=== PATIENT | female | born 1960 | race Caucasian/White ===

== ENCOUNTER 2017-12-28 00:14 | Inpatient (IN) | payer OTHER ==
[2017-12-28] MEDS ORDERED: CONTRAST GIVEN MC (01:30)
[2017-12-28 01:31] LABS: BASO # 0.1 x10^3/uL (0.0-0.2); BASO % 0 % (0-3); EOS # 0.1 x10^3/uL (0.0-0.7); EOS % 1 % (0-3); HEMATOCRIT 47.2 % (36.0-47.0); HEMOGLOBIN 16.1 g/dL (12.0-15.5); LYMPH # 1.2 x10^3/uL (1.0-4.8); LYMPH % 7 % (24-48); MEAN CORPUSCULAR HEMOGLOBIN 29 pg (25-35); MEAN CORPUSCULAR HGB CONC 34 g/dL (31-37); MEAN CORPUSCULAR VOLUME 86 fL (79-100); MONO # 0.8 x10^3/uL (0.0-1.1); MONO % 4 % (0-9); NEUT # 16.3 x10^3uL (1.8-7.7); NEUT % 88 % (31-73); PLATELET COUNT 229 x10^3/uL (140-400); RED BLOOD COUNT 5.48 x10^6/uL (3.50-5.40); RED CELL DISTRIBUTION WIDTH 14.1 % (11.5-14.5); WHITE BLOOD COUNT 18.5 x10^3/uL (4.0-11.0)
[2017-12-28] MEDS: IV NORMAL SALINE 1000ML BAG 1,000 ML IV ×3 (01:36→13:22)
[2017-12-28] MEDS: fentaNYL PF VIAL 100 MCG/2 ML VIAL IV (01:36)
[2017-12-28] MEDS: ONDANSETRON PF 4 MG/2 ML VIAL. IV ×2 (01:36→05:55)
[2017-12-28] MEDS: LIDO:MAALOX:DONNATAL 1:1:1 15 ML SINGLE DOSE SWSW (01:42)
[2017-12-28 01:59] LABS: ANION GAP 14 (6-14); BLOOD UREA NITROGEN 25 mg/dL (7-20); BUN/CREATININE RATIO 25 (6-20); CALCIUM 10.1 mg/dL (8.5-10.1); CARBON DIOXIDE 27 mmol/L (21-32); CHLORIDE 99 mmol/L (98-107); GFR 56.9; GLUCOSE 168 mg/dL (70-99); POTASSIUM 3.4 mmol/L (3.5-5.1); SODIUM 140 mmol/L (136-145)
[2017-12-28 02:04] LABS: ALBUMIN 4.1 g/dL (3.4-5.0); ALBUMIN/GLOBULIN RATIO 1.1 (1.0-1.7); ALK PHOS 91 U/L (46-116); ALT (SGPT) 26 U/L (14-59); AST (SGOT) 15 U/L (15-37); LIPASE 143 U/L (73-393); MAGNESIUM 1.7 mg/dL (1.8-2.4); TOTAL BILIRUBIN 0.6 mg/dL (0.2-1.0)
[2017-12-28 02:05] LABS: ADD MAN DIFF? YES
[2017-12-28 02:10] LABS: TROPONINI < 0.017 ng/mL (0.000-0.055)
[2017-12-28 03:12] LABS: BILIRUBIN,URINE NEGATIVE (NEG); CLARITY,URINE CLEAR; COLOR,URINE YELLOW; GLUCOSE,URINE NEGATIVE (NEG); NITRITE,URINE NEGATIVE (NEG); PROTEIN,URINE NEGATIVE (NEG-TRACE); UROBILINOGEN,URINE 0.2 mg/dL (0.2 mg/dL)
[2017-12-28 03:19] LABS: BACTERIA,URINE FEW /HPF (0-FEW); RBC,URINE 0 /HPF (0-2); SQUAMOUS EPITHELIAL CELL,UR FEW /LPF; WBC,URINE OCC /HPF (0-4)
[2017-12-28] MEDS: IOHEXOL 300 MG/ML 100ML VIAL. IV (03:24)
[2017-12-28] MEDS: PROMETHAZINE 12.5 MG in IV NORMAL SALINE 50ML 50 ML IV (03:38)
[2017-12-28 04:16] LABS: % BANDS 12 % (0-9); % EOS 1 % (0-5); % LYMPHS 9 % (24-48); % MONOS 3 % (0-10); % SEGS 75 % (35-66); PLT ESTIMATE ADEQUATE (ADEQUATE)
[2017-12-28] MEDS ORDERED: fentaNYL PF VIAL 100 MCG/2 ML VIAL IV (05:00)
[2017-12-28] MEDS: POTASSIUM CHLORIDE 20 MEQ TABLET.ER. PO (05:30)
[2017-12-28] MEDS: PANTOPRAZOLE IV PUSH 40 MG VIAL. IVP (05:35)
[2017-12-28] MEDS: MAGNESIUM OXIDE 400 MG TABLET PO (05:55)
[2017-12-28] MEDS ORDERED: CIPROFLOXACIN HCL 250 MG TABLET. PO (11:00)
[2017-12-28] MEDS ORDERED: ONDANSETRON PF 4 MG/2 ML VIAL. IV (11:00)
[2017-12-28] MEDS: FAMOTIDINE 20 MG/2 ML VIAL IVP ×2 (13:21→20:31)
[2017-12-28] MEDS: CIPROFLOXACIN 400MG PREMIX 200 ML IV ×2 (13:21→20:31)
[2017-12-28] MEDS: metroNIDAZOLE 500 MG TABLET PO ×2 (14:32→21:28)
[2017-12-28] MEDS: LACTOBACILLUS RHAMNOSUS GG 1 CAPSULE. PO (20:31)
[2017-12-28] MEDS: CETIRIZINE HCL 10 MG TABLET. PO (21:28)
[2017-12-28] MEDS: ACETAMINOPHEN 325 MG TABLET. PO (21:29)
[2017-12-29] MEDS: IV NORMAL SALINE 1000ML BAG 1,000 ML IV (04:50)
[2017-12-29] MEDS: ACETAMINOPHEN 325 MG TABLET. PO (04:52)
[2017-12-29] MEDS: metroNIDAZOLE 500 MG TABLET PO (04:53)
[2017-12-29 05:53] LABS: ADD MAN DIFF? NO
[2017-12-29 06:14] LABS: BASO % 0 % (0-3); EOS % 1 % (0-3); HEMATOCRIT 39.2 % (36.0-47.0); HEMOGLOBIN 13.1 g/dL (12.0-15.5); LYMPH # 1.3 x10^3/uL (1.0-4.8); LYMPH % 30 % (24-48); MEAN CORPUSCULAR HEMOGLOBIN 29 pg (25-35); MEAN CORPUSCULAR HGB CONC 34 g/dL (31-37); MEAN CORPUSCULAR VOLUME 88 fL (79-100); MONO # 0.5 x10^3/uL (0.0-1.1); MONO % 11 % (0-9); NEUT # 2.5 x10^3uL (1.8-7.7); NEUT % 58 % (31-73); PLATELET COUNT 151 x10^3/uL (140-400); RED BLOOD COUNT 4.48 x10^6/uL (3.50-5.40); RED CELL DISTRIBUTION WIDTH 14.6 % (11.5-14.5); WHITE BLOOD COUNT 4.2 x10^3/uL (4.0-11.0)
[2017-12-29 06:16] LABS: ANION GAP 5 (6-14); BLOOD UREA NITROGEN 9 mg/dL (7-20); CALCIUM 8.4 mg/dL (8.5-10.1); CARBON DIOXIDE 30 mmol/L (21-32); CHLORIDE 106 mmol/L (98-107); CREATININE 0.7 mg/dL (0.6-1.0); GFR 85.9; GLUCOSE 91 mg/dL (70-99); POTASSIUM 3.5 mmol/L (3.5-5.1); SODIUM 141 mmol/L (136-145)
[2017-12-29] MEDS: FAMOTIDINE 20 MG/2 ML VIAL IVP (09:13)
[2017-12-29] MEDS: LACTOBACILLUS RHAMNOSUS GG 1 CAPSULE. PO (09:14)
[2017-12-29] MEDS: CIPROFLOXACIN 400MG PREMIX 200 ML IV (09:14)
[2017-12-29] MEDS: LOPERAMIDE 2 MG CAPSULE PO (16:35)
[2017-12-29] MEDS ORDERED: CIPROFLOXACIN HCL 250 MG TABLET. PO (21:00)
[2017-12-29] MEDS ORDERED: metroNIDAZOLE 500 MG TABLET PO (21:00)
== END 2017-12-29 16:00 | disposition home or self-care (01) | DRG 872 ==
LOC: ER 00:14 → 5 SOUTH 04:31
DX: A41.9 Sepsis, unspecified organism (principal); D75.1 Secondary polycythemia; K52.9 Noninfective gastroenteritis and colitis, unspecified; E83.42 Hypomagnesemia; E86.0 Dehydration; E03.9 Hypothyroidism, unspecified; E78.5 Hyperlipidemia, unspecified; E87.6 Hypokalemia; Z96.651 Presence of right artificial knee joint; R73.9 Hyperglycemia, unspecified; F41.9 Anxiety disorder, unspecified; I10 Essential (primary) hypertension; Z83.3 Family history of diabetes mellitus; Z82.49 Family history of ischemic heart disease and other diseases of the circulatory system; Z90.49 Acquired absence of other specified parts of digestive tract; Z90.710 Acquired absence of both cervix and uterus; Z90.721 Acquired absence of ovaries, unilateral
CPT/HCPCS: 36415; 74177; 80048; 80053; 81001; 83690; 83735; 84484; 85007; 85025; 93005; 96361; 96365; 96375; 99285; 99285-25; C9113; J0744; J2405; J2550; J3010; J7030; Q9967; S0028